=== PATIENT | female | born 1945 | race Caucasian/White ===

== ENCOUNTER 2024-11-12 19:49 | Emergency (ER) | payer MEDICARE ==
[~2024-11-12] VITALS: Ht 152.4 cm; Wt 54.4 kg
[2024-11-12 20:12] VITALS: BP 174/65; PULSE 96; RESP 18; TEMP 98.4; O2SAT 97
[2024-11-12 20:19] LABS: APPEARANCE,URINE CLOUDY; LEUKOCYTE ESTERASE ,URINE 2+ (NEGATIVE); NITRATE,URINE NEGATIVE (NEGATIVE); UA COLOR STRAW
[2024-11-12 20:31] LABS: BASOPHIL # 0.0 10^3/uL (0.0-0.1); BASOPHIL % 0.2 % (0.1-1.2); EOSINOPHIL # 0.3 10^3/uL (0.0-0.2); EOSINOPHIL % 2.9 % (0.0-5.0); HEMATOCRIT(ML) 34.8 % (36.0-46.0); IG % 0.30 % (0.00-0.50); LYMPHOCYTES # 1.72 10^3/uL1 (1.0-4.8); LYMPHOCYTES % 19.5 % (24.0-44.0); MEAN CORP HGB 30.8 pg (26-34); MEAN CORP HGB CONCENTRATION 33.0 g/dL (33-36.5); MEAN CORP VOLUME 93.3 fL (78-100); MONOCYTES # 0.7 10^3/uL (0.3-0.8); MONOCYTES % 7.4 % (5.0-12.0); NEUTROPHIL # 6.2 10^3/uL (1.8-7.7); NEUTROPHILS % 69.7 % (41.0-85.0); RED BLOOD CELL 3.73 10^6/uL (4.00-5.20); RED CELL DISTRIBUTION WIDTH 13.3 % (11.5-14.5); WHITE BLOOD CELL 8.8 10^3/uL (4.5-11.0)
[2024-11-12 20:54] LABS: ALANINE AMINOTRANSFERASE(ML) 15.0 U/L (12-78); ALBUMIN(ML) 3.7 g/dL (3.4-5.0); CREATININE SERUM 1.26 mg/dL (0.59-1.40); EST GFR, NON-AA 41.1 (>/=60)
[2024-11-12 21:07] VITALS: BP 151/67; PULSE 96; RESP 18; TEMP 98.4; O2SAT 94
[2024-11-12] MEDS ORDERED: ROCEPHIN ONE (21:08)
[2024-11-12] MEDS ORDERED: LIDOCAINE 1% VIAL ONE (21:08)
[2024-11-12] MEDS: ROCEPHIN IM ONE (21:16)
== END 2024-11-12 21:20 | disposition home or self-care (01) ==
LOC: ER 19:49
DX: N39.0 Urinary tract infection, site not specified (principal); R31.9 Hematuria, unspecified; E11.9 Type 2 diabetes mellitus without complications; I10 Essential (primary) hypertension; Z90.49 Acquired absence of other specified parts of digestive tract; Z90.89 Acquired absence of other organs
CPT/HCPCS: 99283; 96372; 87086; 80053; 85025; 36415; 81001; J2003; J0696